=== PATIENT | female | born 1980 ===

== ENCOUNTER 2018-06-18 01:47 | Emergency (ER) | payer MEDICAID ==
[~2018-06-18] VITALS: Ht 170.2 cm; Wt 117.9 kg
[2018-06-18] MEDS ORDERED: SODIUM CHLORIDE 0.9% 1,000 ML IVB ONE (02:02)
[2018-06-18] MEDS ORDERED: ONDANSETRON HCL 4 MG/2 ML VIAL IV ONE (02:30)
[2018-06-18 02:34] LABS: Basophils # (auto) 0.1 uL; Basophils % (auto) 0.5 % (0.0-2.0); Eosinophils # (auto) 0 uL; Eosinophils % (auto) 0.1 % (0.0-7.0); Hematocrit 39.8 % (36.0-46.0); Hemoglobin 13.2 g/dL (12.2-16.2); Lymphocytes # (auto) 1.8 uL; Lymphocytes % (auto) 11.6 % (10.0-50.0); Mean Corpuscular Hemoglobin 30.9 pg (28.0-32.0); Mean Corpuscular Hgb Conc. 33.2 g/dL (32.0-36.0); Monocytes # (auto) 0.6 uL; Monocytes % (auto) 3.7 % (0.0-12.0); Neutrophils # (auto) 13.3 uL; Neutrophils % (auto) 84.1 % (37.0-80.0); Platelet Count (auto) 427 10^3/uL (140-450); Red Blood Cells 4.28 10^6/uL (4.0-5.20); Red Cell Distribution Width 12.5 % (11.8-14.3); White Blood Cell 15.8 10^3/uL (4.4-10.8)
[2018-06-18 02:52] LABS: Albumin 3.6 g/dL (3.4-5.0); Calcium 8.5 mg/dL (8.5-10.1); Potassium 3.7 mmol/L (3.5-5.1)
[2018-06-18 02:55] LABS: BUN/Creatinine Ratio 13.5; Bilirubin, Total 0.2 mg/dL (0.2-1.0); Total Protein 7.4 g/dL (6.4-8.2)
[2018-06-18 06:06] VITALS: BP 122/86
== END 2018-06-18 05:26 | disposition home or self-care (01) ==
LOC: EDBD 01:47 → ER 01:47
DX: F10.129 Alcohol abuse with intoxication, unspecified (principal); F17.210 Nicotine dependence, cigarettes, uncomplicated; R11.10 Vomiting, unspecified; Y90.6 Blood alcohol level of 120-199 mg/100 ml
CPT/HCPCS: 36415; 80053; 80320; 85025; 94761; 96361; 96374; 99285; J2405

== ENCOUNTER 2018-09-19 16:24 | Emergency (ER) | payer MEDICAID ==
[~2018-09-19] VITALS: Ht 170.2 cm; Wt 124.7 kg
[2018-09-19 21:25] VITALS: BP 142/91
[2018-09-19] MEDS ORDERED: IBUPROFEN 800 MG TAB PO ONE (21:45)
== END 2018-09-19 21:51 | disposition home or self-care (01) ==
LOC: ER 16:24
DX: M19.011 Primary osteoarthritis, right shoulder (principal); F17.210 Nicotine dependence, cigarettes, uncomplicated
CPT/HCPCS: 73030